=== PATIENT | male | born 1935 | race Caucasian/White ===

== ENCOUNTER 2017-02-21 11:14 | Inpatient (IN) | payer MEDICARE, OTHER ==
--- NOTE | ~2017-02-21 | CN ---
Consultation Report [facility] [address] [place]. [address] NAME: GUDELIA LEVINE : 34 STATUS : ADM IN PAT#: [id number] AGE: 81 ADM/REG DATE : 02/21/17 MR#: [id number] REPORT SERV DATE: 03/01/17 DICTATED BY: LORENE FELICIANO DATE: 03/01/17 REPORT STATUS : Draft TRANSCRIBED BY: MODL DATE: 03/01/17 CONSULTATION DATE OF CONSULTATION: REASON FOR CONSULTATION: Due to acute kidney injury on chronic kidney disease. HISTORY OF PRESENT ILLNESS: This is a very pleasant 81-year-old male patient, who has had a long complicated course of late medically. He was admitted to [facility] on 02/21/2017, from an outside facility with an initial complaint of atrial fibrillation with rapid ventricular response. He had converted by his arrival here and was admitted by the hospitalist service in favor of further workup and supportive care. He was noted to have an abnormal gallbladder on 02/22/2017. Abdominal survey via CT with evaluation for surgical services, who recommended no surgical intervention at current time. On 02/24/2017, he was evaluated by GI Services for an elevated liver function with question of need for further workup, however, there was felt to be no need for further workup at that time. The patient was opted for close observation for following evaluation of his LFTs to see if they trended down. 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 He is been monitored closely with followup chest x-ray exam was today noted to be a severe failure rather with a right pleural effusion, with a left pleural effusion that was stable. We were asked to evaluate the patient as his baseline creatinine appears to be around 1.2 to 1.4, with his creatinine trending up on 02/26/2017 to 1.54, 02/27/2017 to 1.63, and 2.08 on 02/28/2017, and today at 2.36, now at 2.41. The patient is lying awake in bed this afternoon. He is severely tachypneic, dyspneic, and he finds it difficult to hold conversation. He is awake and alert. Somewhat distressed with his breathing status. Denies current chest pain. No nausea, vomiting, or diarrhea. PAST MEDICAL HISTORY: Positive for GI bleed, secondary AVMs, colitis, gastric ulcers, diverticulosis, COPD with oxygen dependence, PEG tube was subsequently removed, coronary artery disease, CHF, diastolic CHF, paroxysmal atrial fibrillation, peripheral artery disease, bilateral carotid endarterectomies, with peripheral stenting, hypertension, diabetes mellitus, chronic kidney disease baseline as above, diverticular GI bleeding, acute blood loss anemia, EtOH abuse with DTs, renal tubular acidosis, BPH, C diff, and partial small bowel obstruction. SURGICAL HISTORY: Positive for colonoscopy, EGD, tracheostomy, PEG tube placement, subsequently discontinued with result of transverse colon enterectomy, transverse colon repair, and fatty tumor removal from the neck. SOCIAL HISTORY: , nursing facility. Former ETOH abuse. Positive for chronic tobacco abuse. Consultation Report [address] [place]. [address] NAME: GUDELIA LEVINE : 34 STATUS : ADM IN PAT#: [id number] AGE: 81 ADM/REG DATE : 02/21/17 MR#: [id number] REPORT SERV DATE: 03/01/17 DICTATED BY: LORENE FELICIANO DATE: 03/01/17 REPORT STATUS : Draft TRANSCRIBED BY: JAYLA DATE: 03/01/17 FAMILY HISTORY: Noncontributory and not reviewed during this consultation and dictation. REVIEW OF SYSTEMS: Review of systems is difficult to complete with the patient in his current medical state. ACTIVE CURRENT MEDICATIONS: Albumin 25 g IV q.8, Lipitor 20 mg p.o. at bedtime, Bumex 2 mg IV q.8, Coreg 6.25 mg p.o. b.i.d., Rocephin 1 g IV daily, Celexa 20 mg p.o. daily, Colace 100 mg p.o. daily, Ativan 0.5 mg p.o. at bedtime, magnesium oxide 400 mg p.o. b.i.d., Protonix 40 mg p.o. b.i.d., Carafate 1 g p.o. a.c. at bedtime, Flomax 0.4 mg p.o. q.18 hours, p.r.n. medications for antipain, antinausea, electrolyte protocol are also listed. ALLERGIES: HE LISTS ALLERGIES TO HYDRALAZINE, PEANUT BUTTER, AND IBUPROFEN. PHYSICAL EXAMINATION: VITAL SIGNS: Blood pressure 182/79, temperature 97.5, his respiratory rate is at 24 and difficult, heart rate is 66 beats per minute. GENERAL: He is an acutely ill appearing, tachypneic, and dyspneic male patient, lying in bed during evaluation. HEENT: Normocephalic and atraumatic. Normal ocular movements. No scleral icterus or conjunctival pallor is appreciated. Neck: Supple without thyromegaly. No JVD or mass. CHEST: Shows positive S1, with regular rhythm. LUNGS: Shows rhonchi and rales throughout without appreciable wheezes. He is dyspneic to examination. GASTROINTESTINAL: Examination shows a rounded firm abdomen on exam. GENITOURINARY: Examination is deferred. He does have a Padilla catheter to bedside drainage with a modest amount of clear yellow urine. NEUROLOGIC: He is unable to be tested in his current medical state. Skin: Warm, dry, and intact to visualized surfaces. No rash, lesions, or ecchymosis. PSYCHIATRIC: He is of appropriate mood and affect, although, he is somewhat distressed. LABORATORY DATA: Pertinent laboratories and imaging to this evaluation are as follows. Most recent CBC white blood cell count of 13.2, RBC 2.98, hemoglobin 8.8, hematocrit 27.8, and platelets at 241. Renal function panel; sodium 135, potassium 4.6, chloride 105, CO2 23, BUN 33, creatinine 2.41, reflected GFR at 24 mL/minute. Calcium 7.5, phosphorus 3.2, albumin 2.6. Most recent portable chest x-ray shows severe failure right pleural effusion with a small left effusion noted on examination. IMPRESSION AND PLAN: This is an 81-year-old male patient, with medical history as listed above, with a recent admission for atrial fibrillation with RVR, with workups that were subsequent in following with the patient, who is now in acute respiratory distress. I have discussed the patient this afternoon with his primary physician and hospitalist Dr. Schwarz, who is in agreement to move this patient to an ICU setting. We will escalate his care and move him to the medical intensive care unit. He will be placed on a Bumex drip at Consultation Report [place] [id number] [facility] [place]. [address] NAME: GUDELIA LEVINE : 34 STATUS : ADM IN PAT#: [id number] AGE: 81 ADM/REG DATE : 02/21/17 MR#: [id number] REPORT SERV DATE: 03/01/17 DICTATED BY: LORENE FELICIANO DATE: 03/01/17 REPORT STATUS : Draft TRANSCRIBED BY: JAYLA DATE: 03/01/17 2 mL an hour, Diuril IV x1 250 mg, stat ABG, BiPAP support. Critical Care will be consulted for evaluation and will direct his care there. His acute kidney injury is likely a multifocal scenario at this point. It could be related to possible acute tubular necrosis from atrial fibrillation with rapid ventricular response, versus acute tubular necrosis related to sepsis, or a cardio renal syndrome picture. Check renal ultrasound, echocardiogram, procalcitonin, and follow the patient closely. Serial laboratories, strict I's and O's, and daily weights. Should his renal dysfunction continued to escalate, he would likely be a poor long-term hemodialysis candidate given his multiple comorbidities, and his advancing age. Further modification of treatment plan may be made based on clinical presentation of the patient, laboratory results, further consultation with renal attending. We appreciate the consultation. We are glad to follow this patient with you. DICTATED BY: Con Mirza NP JR/JAYLA Lorene Feliciano M.D. / [id number] CC: Arnav Schwarz M.D.
--- NOTE | ~2017-02-21 | CN ---
Consultation Report [facility] [address] [place]. [address] NAME: GUDELIA NUGENT : 34 STATUS : ADM IN [facility]#: [id number] AGE: 81 ADM/REG DATE : 02/21/17 MR#: [id number] REPORT SERV DATE: 02/22/17 DICTATED BY: TOM PEARCE DATE: 02/22/17 REPORT STATUS : Draft TRANSCRIBED BY: MODL DATE: 02/22/17 CONSULTATION DATE OF CONSULTATION: 02/22/2017 REASON FOR CONSULTATION: Abnormal gallbladder on CT. HISTORY OF PRESENT ILLNESS: Mr. Nugent is an 81-year-old gentleman who was transferred to [facility] from [place] due to atrial fibrillation with RVR. He was treated with IV amiodarone and converted. He has had several abdominal surgeries, most recently being exploratory laparotomy with lysis of adhesions on 08/16 and on 07/23/2013, underwent repair of the transverse colon when he forcefully removed his PEG tube which was in the transverse colon. This was performed by Dr. Victorino Bazan. Currently, the consult is for abnormal gallbladder on CT, which was distended with increased intensity in the lumen. This is consistent with either multiple stones, calcium, or possibly hemorrhage. The bile ducts are all normal and there is a localized ileus. The patient does deny pain; however, he is tender on physical exam. Please see Dr. Anant Torres's dictation for past medical history, past surgical history, allergies, medications, social history, family history. REVIEW OF SYSTEMS: Listed in the HPI, otherwise, negative. PHYSICAL EXAMINATION: VITAL SIGNS: 97.7, 76, 20, 96, 112/57. GENERAL: Alert elderly white male, no acute distress. HEENT: Normocephalic and atraumatic. EOMI. PERRLA. Oropharynx is clear. NECK: Supple. No lymphadenopathy. LUNGS: Clear to auscultation bilaterally. HEART: Regular rate and rhythm. ABDOMEN: Protuberant, consistent with prior surgical scars. He denies pain, however, to palpation, he has pain right at McBurney point. NEUROLOGICAL: Moves all extremities well. Cranial nerves 2 through 12 intact. SKIN: No rashes. LABORATORY DATA: His white count yesterday was 11.8, H and H 10.5 and 32.4, platelets of 180. Electrolytes are within the normal range. Creatinine is elevated today at 1.32 from 0.92 yesterday. All LFTs are within normal range. He has decreased albumin at 2.8 and his troponins were mildly elevated at 0.19, down to 0.17, and then 0.09. His beta natriuretic peptide was elevated at 306. ASSESSMENT: Abnormal findings of gallbladder on CT scan. PLAN: At this point, I would recommend an ultrasound of the right upper quadrant, which is a more sensitive test, and specifically, the CT scan is for gallbladder abnormalities. The Consultation Report [facility] [address] [place]. [id number] NAME: GUDELIA NUGENT : 34 STATUS : ADM IN PAT#: [id number] AGE: 81 ADM/REG DATE : 02/21/17 MR#: [id number] REPORT SERV DATE: 02/22/17 DICTATED BY: TOM PEARCE DATE: 02/22/17 REPORT STATUS : Draft TRANSCRIBED BY: JAYLA DATE: 02/22/17 white count was only slightly elevated, so we will repeat the CBC in the morning. At this point, I think he has cholelithiasis but no evidence of cholecystitis. He is currently not a surgical candidate due to the elevated troponins. We would need cardiac clearance. In the meantime, if pain or infection is a problem, I would recommend Interventional Radiology to place a cholecystostomy tube. It is my pleasure participating in the care of your patient. OC/JAYLA Tom Pearce NP / [id number] CC: Anant Valverde M.D.
--- NOTE | ~2017-02-21 | DS ---
Discharge Summary [facility] [address] [place]. [address] NAME: GUDELIA NUGENT : 34 STATUS : DIS IN PAT#: [id number] AGE: 81 ADM/REG DATE : 02/21/17 MR#: [id number] REPORT SERV DATE: 03/08/17 DICTATED BY: JAZMINE MORELOS DATE: 03/07/17 REPORT STATUS : Draft TRANSCRIBED BY: MODL DATE: 03/07/17 ADMISSION DATE: 02/21/2017 DISCHARGE DATE: 03/07/2017 HOSPITAL COURSE: Please see history and physical by Dr. Torres on 02/21/2017 for full details. In brief, Mr. Nugent is an 81-year-old gentleman with a past medical history of atrial fibrillation, multiple medical problems, who was sent here for atrial fibrillation with RVR. Please see interim discharge summary by Dr. Schwarz on 03/01/2017. 1. The patient had acute hypoxic respiratory failure, thought to be underlying volume overload, the patient underwent diuresis, unfortunately had worsening kidney function. He required BiPAP therapy. This was done for around 1-1/2 days. Finally, the patient requested to have this off, initially he was short of breath but actually had improvement in his respiratory status by the time of discharge. The patient was adamant that he did not want to have further BiPAP therapy. Family discussions were conducted with the niece and son, Ananth, with regard to the patient's wishes. It was thought that he would not want further aggressive care such as intubation or resuscitation. The patient actually at one point in time said that he feared pain and wanted to without pain. Therefore, aggressive pulmonary support such as BiPAP and mechanical ventilation was not considered. At the time of discharge, the patient was actually on nasal cannula. 2. VRE infection, acute cholecystitis: The patient is status post percutaneous cholecystostomy tube. He is not a surgical candidate. This tube stopped draining. He was on antibiotics, inflammatory markers improved. He will continue to have the cholecystostomy tube. 3. Acute GI bleeding: The patient was noted to have AV malformations. At the time of discharge, his hemoglobin was 7.7, on 03/05/2017, it was 6.9. 4. Acute kidney injury: The kidney function has continued to deteriorate, his BUN has been going up daily, his creatinine has been going up daily, and the patient is slightly acidotic. After discussing with Nephrology and having a family meeting, the patient's wishes were not to undergo dialysis. Hence, the reason for hospice is due to the worsening kidney function in the setting of pulmonary failure, chronic infection that is not amenable for curative intent. DISPOSITION: The patient has been discharged to hospice. Also of note, the patient did not want to take any further p.o. intake and refused a Dobbhoff tube. The patient left in good spirits. HFQ/MODL Jazmine Morelos MD / [id number] Discharge Summary [address] [address] NAME: GUDELIA NUGENT : 34 STATUS : DIS IN PAT#: [id number] AGE: 81 ADM/REG DATE : 02/21/17 MR#: [id number] REPORT SERV DATE: 03/08/17 DICTATED BY: JAZMINE MORELOS DATE: 03/07/17 REPORT STATUS : Draft TRANSCRIBED BY: JAYLA DATE: 03/07/17 CC: Arnav Schwarz M.D.
--- NOTE | ~2017-02-21 | CN ---
Consultation Report [facility] [address] [place]. [address] NAME: GUDELIA NUGENT : 34 STATUS : ADM IN PAT#: [id number] AGE: 81 ADM/REG DATE : 02/21/17 MR#: [id number] REPORT SERV DATE: 02/24/17 DICTATED BY: RUTH BAIRD DATE: 02/24/17 REPORT STATUS : Draft TRANSCRIBED BY: MODL DATE: 02/24/17 GI CONSULTATION. DATE OF CONSULTATION: 02/24/2017 REASON FOR CONSULTATION: Evaluation and management of elevated LFTs, possible need for ERCP. HISTORY OF PRESENT ILLNESS: Mr. Nugent is an 81-year-old male patient, who has been seen by Dr. Garcia in the outpatient setting, who was admitted on 02/21/2017 with a chief complaint of atrial fib with rapid ventricular response. He was transferred from [facility] as no ICU beds were available there. He had been having some shortness of breath, pulmonary vascular congestion. He is postop exploratory lap secondary to adhesions with lysis of adhesions, the cause of small bowel obstruction. Last seen by us in October 2016 for evaluation and management of a GI bleeding. On 10/10/2016, he had EGD with Dr. Velazquez. On that exam, he had gastric ulcers which biopsied a single gastric polyp, otherwise normal. Underwent colonoscopy the next day. Findings on that exam showed some patchy mid inflammation found in the rectum, the rectosigmoid colon and the sigmoid colon secondary to colitis, which was biopsied. He had diverticulosis of the sigmoid, otherwise normal. He was subsequently discharged on 10/12/2016. While being admitted here, he has had a trend in his liver function testing. He had an MRI, which showed inflamed gallbladder and inflammation of the common bile duct without dilatation. Ultrasound showed diffuse wall thickening, internal debris sludge within the gallbladder lumen, positive Camacho sign. Common bile duct was normal. His total bilirubin maximum was 4.8, presently it is 3.3, alkaline phosphatase presently is 322, ALT 187, AST 149. I have discussed with Dr. Velazquez as well as Dr. Valverde. We were consulted for ERCP. There was no clinical indication at this point in time for an ERCP. We would recommend trending his LFTs and possible surgical intervention per the surgical team. PAST MEDICAL HISTORY: Positive for GI bleed secondary to AVMs, colitis, gastric ulcers, diverticulosis, COPD with oxygen dependence, PEG tube which subsequently he removed, coronary artery disease, CHF, diastolic CHF, paroxysmal atrial fib, peripheral artery disease with bilateral carotid endarterectomies and peripheral stenting, hypertension, diabetes type 2, chronic kidney disease, diverticular GI bleeding, acute blood loss anemia, alcohol abuse with DTs, renal tubular acidosis, BPH, C diff, partial small bowel obstruction. SURGICAL HISTORY: Colonoscopy; EGD; tracheostomy; PEG tube placement, subsequently discontinued with result of transverse colon enterotomy; transverse colon repair; fatty tumor removal from the neck. SOCIAL HISTORY: , lives at nursing facility. Former alcohol abuse. Positive tobacco. FAMILY HISTORY: Stomach cancer in two sisters. Consultation Report [address] [place]. [address] NAME: GUDELIA NUGENT : 34 STATUS : ADM IN [facility]#: [id number] AGE: 81 ADM/REG DATE : 02/21/17 MR#: [id number] REPORT SERV DATE: 02/24/17 DICTATED BY: RUTH BAIRD DATE: 02/24/17 REPORT STATUS : Draft TRANSCRIBED BY: JAYLA DATE: 02/24/17 ALLERGIES: PEANUTS, IBUPROFEN, AND HYDRALAZINE. HOME MEDICATIONS: DuoNeb inhaler, vitamin C, Lipitor, Symbicort, Coreg, Celexa, Benadryl, Colace, ferrous sulfate, Lasix, Apresoline, Claritin, Ativan, nitroglycerin, Zofran, Protonix, Carafate, Flomax. REVIEW OF SYSTEMS: A 10-point review of systems has been obtained with pertinent positives being addressed in the history of present illness. PHYSICAL EXAMINATION: VITAL SIGNS: Temperature is 96.7, pulse 55, respirations 18, blood pressure 98/43. NEURO: Reveals an elderly male, resting in bed who awakens to name. GENERAL: He is cooperative. He is in no acute distress, chronically ill appearing in nature. He is oriented x3. NECK: No JVD. No palpable nodes. HEAD, EARS, EYES, NOSE, AND THROAT: He has mild scleral icterus. Pupils equal, round, reactive to light, and accommodation. Normocephalic and atraumatic. LUNGS: Coarse and diminished. CARDIOVASCULAR SYSTEM: Regular rate and rhythm. Positive for murmur. ABDOMEN: Soft and round with right upper quadrant tenderness to palpation. No rebound or guarding elicited on exam, unable to assess organomegaly. Active bowel sounds. EXTREMITIES: 1+ bilateral lower extremity edema. SKIN: Pale, warm, dry, and intact. PERTINENT LABORATORY DATA: Sodium 142, potassium 4.0, BUN 35, creatinine 1.49, white count 13.1, hemoglobin 7.6, hematocrit 23.6, total bilirubin 3.3, alkaline phosphatase 322, ALT 187, AST 149. ASSESSMENT: 1. Acute cholecystitis with cholangitis. 2. Elevated LFTs. 3. Ndzkn-yx-hvrtuod chronic obstructive pulmonary disease. 4. Anemia, acute on chronic. 5. Paroxysmal atrial fibrillation with sick sinus syndrome. PLAN: 1. Empiric Zosyn. 2. We will discuss further with Dr. Velazquez. At this point in time, did not feel the patient would benefit from ERCP. We will trend his LFTs and make plans accordingly. Okay for clear liquid diet from a GI standpoint. DG/YINAL Consultation Report [address] [place]. [address] NAME: GUDELIA NUGENT : 34 STATUS : ADM IN [facility]#: [id number] AGE: 81 ADM/REG DATE : 02/21/17 MR#: [id number] REPORT SERV DATE: 02/24/17 DICTATED BY: RUTH BAIRD DATE: 02/24/17 REPORT STATUS : Draft TRANSCRIBED BY: JAYLA DATE: 02/24/17 ALVIN Fabian / [id number] CC: Anant Valverde M.D.
--- NOTE | ~2017-02-21 | CN ---
Consultation Report [facility] [address] [place]. [address] NAME: GUDELIA LEVINE : 34 STATUS : ADM IN PAT#: [id number] AGE: 81 ADM/REG DATE : 02/21/17 MR#: [id number] REPORT SERV DATE: 03/02/17 DICTATED BY: GUMARO HERNANDEZ DATE: 03/02/17 REPORT STATUS : Draft TRANSCRIBED BY: MODL DATE: 03/02/17 INFECTIOUS DISEASE CONSULTATION DATE OF CONSULTATION: REASON FOR REFERRAL: Evaluation and treatment of worsening septic-like picture in ICU, now ICU transfer. HISTORY OF PRESENT ILLNESS: The patient is an 81-year-old male. He has a history of extensive smoking in the past and has oxygen-dependent chronic obstructive pulmonary disease. He has coronary artery disease, congestive heart failure, peripheral vascular disease, past history of alcohol abuse, chronic renal insufficiency. He was originally admitted [place] [facility] with abdominal pain. He was found to have a small-bowel obstruction on imaging and was transferred to [facility], where he underwent exploratory laparotomy on 02/14 and findings of extensive adhesions, lysis of adhesions was done. He in this postoperative period had atrial fibrillation with rapid ventricular response and that led to a transfer here to [facility] on 02/21 for better care of that and that has been converted. In the meantime, his wound in the abdomen was healing, but he continued to have a lot of abdominal complaints. He has had upper endoscopy imaging that revealed gallbladder disease that appeared to be an acute cholecystitis and was not felt stable enough by Surgery to undergo a surgical procedure for that, so a percutaneous drain was placed on 02/27, and at the time that procedure was done, the patient was on antibiotics. He had been started on Zosyn. At the time that he got admitted, he grew only abundant vancomycin-resistant Enterococcus. Presumably, other organisms were there, but would have been suppressed by the Zosyn in all likelihood. The Gram stain showed many white cells and few gram-positive cocci, that result just returned yesterday, it was discussed with me and I recommended dosing with daptomycin , which was done yesterday afternoon. In the meantime, the patient worsened through the day yesterday, he felt worsening and began to complain of increasing abdominal pain. He has had ecchymosis-like discoloration in his anterior abdominal wall laterally. He was transferred to the intensive care unit yesterday and placed on BiPAP. He continues to complain of severe abdominal pain and on exam, has findings suggestive of peritoneal signs. However, a CT scan that was done yesterday without contrast showed that there was no obvious intra-abdominal air or signs of bowel rupture. There was a loculated fluid collection in the anterior abdominal wall that could be an early forming abscess and is down in the area where his previous surgery was done. The gallbladder was shown to be decompressed and appeared to be improved. His chest x-ray has shown looks most like pulmonary edema. His major complaint is the abdominal pain at present. PAST MEDICAL HISTORY: Otherwise, unremarkable. Extensive records were reviewed for more than 30 minutes in addition to the usual consult time due to his lengthy complicated hospitalization at three different hospitals. MEDICATIONS: He is on daptomycin and Flagyl alone. Consultation Report [address] [place]. [address] NAME: GUDELIA LEVINE : 34 STATUS : ADM IN [facility]#: [id number] AGE: 81 ADM/REG DATE : 02/21/17 MR#: [id number] REPORT SERV DATE: 03/02/17 DICTATED BY: GUMARO HERNANDEZ DATE: 03/02/17 REPORT STATUS : Draft TRANSCRIBED BY: JAYLA DATE: 03/02/17 ALLERGIES: HE HAS NO KNOWN ANTIMICROBIAL ALLERGIES. SOCIAL HISTORY: He is , previously lived in a long-term care facility. Had continued to smoke until recently and has a past history of extensive alcohol abuse, but not recent. FAMILY HISTORY: Noncontributory. PHYSICAL EXAMINATION: GENERAL: An ill-appearing, elderly male, laboring to breathe. VITAL SIGNS: His temperature is 99.6 with a pulse of 80, respirations 26, blood pressure 147/68, weight is 97 kg. HEENT: Sclerae clear. No oral lesions. NECK: Supple without meningeal signs or lymphadenopathy. LUNGS: There are rales heard bilaterally [facility] up. HEART: Irregular. ABDOMEN: Distended, very tender to light touch with guarding, and signs of rebound. Intermittent bowel sounds were heard. He has a midline incision from his surgery two weeks ago that still has ekta in, it is closed, but there is erythema extending on, on both sides and ecchymoses down the flanks on the left. LABORATORY DATA: His white blood cell count when he originally came here was 11.8, it was up to 15 on 02/26, but decreased after the drain was placed to 14, 13 yesterday, 11.7 today with hematocrit 24.4 and platelets 254. No bandemia on today's diff. BUN and creatinine 39 and 2.25. Procalcitonin when he came in was 1.17 and was 0.23 when last checked on 02/28. No new cultures pending. IMPRESSION: The patient appears more ill and septic appearing, and I feel the abdomen is the source and even has physical findings suggestive of peritoneal signs. The gallbladder is probably not the source since it looks better on the CT. I would be more concerned about the problem related to his surgery two weeks ago and perhaps a developing abscess around that incision. RECOMMENDATIONS: 1. We will cover him aggressively with antibiotics using daptomycin and Zosyn. 2. Surgery is to see him again. Would defer to them whether something needs to be done regarding this fluid collection, either needle aspirate or opening the wound. 3. Finally, I will follow the patient with you. I appreciate very much your consulting on this patient. KATHLEEN/JAYLA Gumaro Consultation Report [address] [place]. [address] NAME: GUDELIA LEVINE : 34 STATUS : ADM IN [facility]#: [id number] AGE: 81 ADM/REG DATE : 02/21/17 MR#: [id number] REPORT SERV DATE: 03/02/17 DICTATED BY: GUMARO HERNANDEZ DATE: 03/02/17 REPORT STATUS : Draft TRANSCRIBED BY: JAYLA DATE: 03/02/17 Ramiro Hernandez / [id number] CC: Arnav Schwarz M.D.
--- NOTE | ~2017-02-21 | HP ---
History And Physical [place] [id number] [facility] [place]. [address] NAME: GUDELIA LEVINE : 34 STATUS : ADM [place] PAT#: [id number] AGE: 81 ADM/REG DATE : 02/21/17 MR#: [id number] REPORT SERV DATE: 02/21/17 DICTATED BY: JAQUELIN BRITT DATE: 02/21/17 REPORT STATUS : Draft TRANSCRIBED BY: YINAL DATE: 02/21/17 DATE OF ADMISSION: 02/21/2017 EXAMINING PHYSICIAN: Jaquelin Britt M.D. REASON FOR ADMISSION: Atrial fibrillation and rapid ventricular response. HISTORY OF PRESENT ILLNESS: This is an 81-year-old white male, transferred from the [facility] because there were no ICU beds there for the atrial fibrillation. The patient is placed on an amiodarone drip on the floor. He converted to normal sinus rhythm prior to discharge. EKG confirms this. He was transferred because IV Cardizem could not be given according to the report I obtained. He does have a history of episodic atrial fibrillation with rapid ventricular response. His had it in the past as well as she was cardioverted previously. He has been having some shortness of breath the last couple days with increasing pulmonary vascular congestion. Diuresis was started yesterday. He continues to have leg edema. He pulled his own NG tube out. He is postop exploratory laparotomy because of adhesions causing small bowel obstruction. He has had a bowel perforation here in the past apparently when he pulled the PEG tube out. He has had a tracheostomy and is on a ventilator, and he says he will go back on a ventilator if necessary to preserve his life. He has some postoperative blood loss anemia, chronic kidney disease stage 3, had hyperkalemia, was on oral potassium at [facility] on transfer. The patient says he is doing quite well. He has had normal sinus rhythm, was a little weak earlier. He pulled his NG tube out. He has been eating food for the last two days and says he is getting better. His abdominal pain is under control. Though, he is getting distended. He says he has not had a bowel movement in the last two days. DICTATION ENDS HERE RAHUL/JAYLA Jaquelin Britt M.D. / [id number] History And Physical [address] [place] [facility] [address] NAME: GUDELIA LEVINE : 34 STATUS : ADM [place] PAT#: [id number] AGE: 81 ADM/REG DATE : 02/21/17 MR#: [id number] REPORT SERV DATE: 02/21/17 DICTATED BY: JAQUELIN BRITT DATE: 02/21/17 REPORT STATUS : Draft TRANSCRIBED BY: YINAL DATE: 02/21/17 CC: Jaquelin Valverde M.D.
--- NOTE | ~2017-02-21 | IDS ---
Interim Discharge Summary [facility] [address] [place]. [address] NAME: GUDELIA LEVINE : 34 STATUS : ADM IN [facility]#: [id number] AGE: 81 ADM/REG DATE : 02/21/17 MR#: [id number] REPORT SERV DATE: 03/01/17 DICTATED BY: ARNAV SCHWARZ DATE: 03/01/17 REPORT STATUS : Draft TRANSCRIBED BY: MODJake DATE: 03/01/17 ADMISSION DATE: 02/21/2017 DISCHARGE DATE: DATE OF INTERIM SUMMARY: 03/01/2017 INTERIM DIAGNOSES: 1. Acute on chronic systolic and diastolic congestive heart failure. 2. Bilateral pleural effusions. 3. Acute kidney injury, with most likely cardiorenal syndrome. 4. Diastolic heart failure. 5. Oxygen-dependent chronic obstructive pulmonary disease with history of respiratory failure in the past and intubation and the PEG tube in the past. 6. Coronary artery disease. 7. Paroxysmal atrial fibrillation with recent episode of atrial fibrillation and rapid ventricular response. 8. Acute cholecystitis, currently with a cholecystostomy tube. Not a surgical candidate according to Surgery. 9. Abnormal liver function studies, currently stable. 10.Acute gastrointestinal bleeds with arteriovenous malformations of the duodenum, status post gastrointestinal intervention and cautery of the arteriovenous malformations two days ago. Acute blood loss anemia with recent transfusion of 3 units of packed red blood cells. 11.Peripheral arterial disease with bilateral carotid endarterectomies. 12.Hypertension. 13.Type 2 diabetes mellitus. 14.Chronic kidney disease stage 3. 15.History of diverticular bleeds in the past. 16.Alcohol abuse with history of delirium tremens in the past. 17.History of renal tubular acidosis. 18.History of benign prostatic hypertrophy. 19.History of Clostridium difficile colitis. 20.Cholangitis with Enterococcus faecium growing out of the fine needle aspiration of the gallbladder, currently started on daptomycin. CONSULTANTS DURING THIS HOSPITALIZATION: [facility], Dr. Vinh Schmitt of General surgery, Dr. Mynor Velazquez of Gastroenterology, and [facility]. INVASIVE PROCEDURES DONE DURING THIS HOSPITALIZATION: EGD showing AVMs of the duodenum, status post cautery. Cholecystostomy tube placed under Interventional Radiology. BRIEF HISTORY OF PRESENT ILLNESS: The patient is an 81-year-old male with multiple comorbidities, transferred from [facility] in [facility] with atrial fibrillation and requiring an amiodarone drip. For detailed history and physical exam, please see note dictated by Dr. Anant Torres on 02/21/2017. Interim Discharge Summary [place] [address] [place]. [address] NAME: GUDELIA LEVINE : 34 STATUS : ADM IN PAT#: [id number] AGE: 81 ADM/REG DATE : 02/21/17 MR#: [id number] REPORT SERV DATE: 03/01/17 DICTATED BY: ARNAV SCHWARZ DATE: 03/01/17 REPORT STATUS : Draft TRANSCRIBED BY: MODL DATE: 03/01/17 HOSPITAL COURSE: After being transferred to the hospital, this patient was placed on amiodarone drip, Cardiology was consulted. This patient's heart rhythm came under better control. His amiodarone drip has been discontinued. We have held his anticoagulation because of his continued GI bleed. When he came here, he was noted to also have an elevated liver function studies, and on the CT, the gallbladder had acute cholecystitis. Dr. Vinh Schmitt saw the patient in consultation, and because of his abnormal LFTs, we wanted the GI evaluation. Dr. Velazquez saw the patient in consultation and as we treated his underlying infection with IV antibiotics which included Rocephin and Flagyl. This patient did improve, his creatinine on admission was normal at 0.9. But since his intervention over the last three days, his creatinine has slowly crept up. He appears volume overloaded. His last BNP was 1100. Since then, he has been treated with multiple doses of IV Lasix. He has been given IV Bumex and he has also been given IV albumin. Today, his creatinine has continually crept up, so we have asked Nephrology to see the patient. Today, his overall condition has also declined where he has become more and more short of breath. His blood pressure has stayed elevated, so that this was to a point where this patient cannot be managed on the floor and will be transferred to the intensive care unit. I have personally discussed his care with Dr. Beba Rivera of the igniter assembler team. DISPOSITION: Will be pending above. OUMAR/JAYLA Arnav Schwarz M.D. / [id number] CC: Arnav Schwarz M.D.
--- NOTE | ~2017-02-21 | HP ---
History And Physical [place] [address] [facility] [place]. [address] NAME: GUDELIA LEVINE : 34 STATUS : DIS IN PAT#: [id number] AGE: 81 ADM/REG DATE : 02/21/17 MR#: [id number] REPORT SERV DATE: 03/28/17 DICTATED BY: JAQUELIN BRITT DATE: 03/28/17 REPORT STATUS : Draft TRANSCRIBED BY: JAYLA DATE: 03/28/17 DATE OF ADMISSION: 02/21/2017 ADDENDUM: PAST MEDICAL HISTORY: He had history of GI bleed, many AVMs, colitis, gastric ulcers, and diverticulosis. He does have COPD with oxygen dependence and PEG, that has been removed. He has coronary artery disease and history of diastolic congestive heart failure, paroxysmal atrial fibrillation, peripheral arterial disease, bilateral carotid artery endarterectomy, peripheral stenting, hypertension, diabetes type 2, chronic kidney disease, history of diverticular bleeding. SOCIAL HISTORY: He is . Lives in a nursing facility. Used to drink alcohol, and used to smoke cigarettes as well. FAMILY HISTORY: Heart disease, lung disease, and high blood pressure run in the family. REVIEW OF SYSTEMS: He has had no headache or eye pain. No chest pain. No shortness of breath. His heart rate was running fast, they told him, and sent him here. He does not feel palpitations. No melena or hematemesis. No shortness of breath. No fever, chills, or night sweats. The remainder of the review of systems was negative. MEDICATIONS: Transfer medications included Bumex, Coreg, Celexa, Colace, Ativan, Protonix, Carafate, and Flomax. PHYSICAL EXAMINATION: VITAL SIGNS: Blood pressure 175/75 with heart rate 75, respiratory rate 18, afebrile. HEENT: EOMI. Sclerae clear. Conjunctivae pink. NECK: No bruit, without JVD. CHEST: Clear. HEART: Regular S1, S2 without murmur, gallop, or click. ABDOMEN: Rounded, firm, protuberant. EXTREMITIES: No edema. Distal pulses not palpable. LABORATORY DATA: Hemoglobin 8.8, hematocrit 27. ASSESSMENT: 1. Paroxysmal atrial fibrillation. 2. Hypertension. 3. Renal insufficiency. 4. Sleep apnea. PLAN: Admitting for control of heart rate. He was at the nursing facility in [place] and then in a hospital there. There were no ICU beds, so he was sent here. He does not want to be resuscitated in the event of cardiac arrest. History And Physical [place] [address] [place]. [address] NAME: GUDELIA LEVINE : 34 STATUS : DIS IN PAT#: [id number] AGE: 81 ADM/REG DATE : 02/21/17 MR#: [id number] REPORT SERV DATE: 03/28/17 DICTATED BY: JAQUELIN BRITT DATE: 03/28/17 REPORT STATUS : Draft TRANSCRIBED BY: JAYLA DATE: 03/28/17 DB/JAYLA Jaquelin Britt M.D. / [id number] CC: Arnav Schwarz M.D.
--- NOTE | ~2017-02-21 | EGD ---
EGD REPORT [facility] [address] [place] [address] NAME: ABEBE NUGENT : 34 STATUS : ADM IN PAT#: [id number] AGE: 81 ADM/REG DATE : 02/21/17 MR#: [id number] REPORT SERV DATE: 02/26/17 DICTATED BY: DATE: REPORT STATUS : Draft TRANSCRIBED BY: [employer] DATE: 02/26/17 [facility] Patient Name: Abebe Nugent Date of : 1935 Attending MD: MYNOR GARCIA MD Procedure Date No Time: 02/26/2017 Procedure: Upper EUS Indications: Suspected choledocholithiasis, Melena Referring MD: JOSE BEST Medicines: Monitored Anesthesia Care Complications: No immediate complications. Estimated blood loss: Minimal. Procedure: Pre-Anesthesia Assessment: - ASA Grade Assessment: IV - A patient with severe systemic disease that is a constant threat to life. After obtaining informed consent, the endoscope was passed under direct vision. Throughout the procedure, the patient's blood pressure, pulse, and oxygen saturations were monitored continuously. The Endoscope was introduced through the mouth, and advanced to the second part of duodenum. The GIF [id number] was introduced through the mouth, and advanced to the second part of duodenum. The upper EUS was accomplished without difficulty. The patient tolerated the procedure well. Findings: Endoscopic Finding : The examined esophagus was normal. Four medium-sized angioectasias with stigmata of recent bleeding were found in the gastric fundus. Fulguration to stop the bleeding by argon plasma at 1 liter/minute and 30 cannon was successful. Estimated blood loss was minimal. Nasogastric tube trauma characterized by edema, erosions and erythema was evident in the gastric fundus and in the gastric body. A single 10 mm semi-sessile polyp with no bleeding and no stigmata of recent bleeding was found in the gastric antrum. Biopsies were taken with a cold forceps for histology. Estimated blood loss was minimal. No gross lesions were noted in the entire examined duodenum. Endosonographic Finding : There was no sign of significant endosonographic abnormality in the common bile duct. No masses, no stones, no biliary sludge and ducts of normal caliber were identified. CBD was 6 mm at maximal diameter. There was no sign of significant endosonographic abnormality in the entire pancreas. No masses, no cysts, the pancreatic duct was regular in contour. EGD REPORT [address] [address] NAME: ABEBE NUGENT : 34 STATUS : ADM IN [facility]#: [id number] AGE: 81 ADM/REG DATE : 02/21/17 MR#: [id number] REPORT SERV DATE: 02/26/17 DICTATED BY: DATE: REPORT STATUS : Draft TRANSCRIBED BY: [employer] DATE: 02/26/17 There was no sign of significant endosonographic abnormality in the ampulla. No masses were identified. No lymphadenopathy seen. Endosonographic imaging of the visualized portion of the liver showed no abnormalities. A limited doppler examination was performed and revealed no significant vascular abnormalities. Impression: - Four recently bleeding angioectasias in the stomach. Treated by fulguration. - Nasogastric tube trauma present in stomach. - A single gastric polyp. Biopsied. - There was no sign of significant pathology in the common bile duct. - There was no sign of significant pathology in the entire pancreas. - There was no sign of significant pathology in the ampulla. - A limited doppler examination was performed and revealed no significant vascular abnormalities. Recommendation: - [facility]. - Surgical consultation for consideration of cholecystectomy at the next available appointment. Procedure Code(s): --- Professional --- 42738, Esophagogastroduodenoscopy, flexible, transoral; with endoscopic ultrasound examination, including the esophagus, stomach, and either the duodenum or a surgically altered stomach where the jejunum is examined distal to the anastomosis 83590, 59, Esophagogastroduodenoscopy, flexible, transoral; with control of bleeding, any method 86456, 59, Esophagogastroduodenoscopy, flexible, transoral; with biopsy, single or multiple Diagnosis Code(s): --- Professional --- K31.811, Angiodysplasia of stomach and duodenum with bleeding K91.89, Other postprocedural complications and disorders of digestive system K31.7, Polyp of stomach and duodenum K92.1, Melena CPT copyright 2013 [employer]. All rights reserved. EGD REPORT [facility] [address] [place] [place]. [address] NAME: ABEBE NUGENT : 34 STATUS : ADM IN [facility]#: [id number] AGE: 81 ADM/REG DATE : 02/21/17 MR#: [id number] REPORT SERV DATE: 02/26/17 DICTATED BY: DATE: REPORT STATUS : Draft TRANSCRIBED BY: [employer] DATE: 02/26/17 The codes documented in this report are preliminary and upon rollway worker review may be revised to meet current compliance requirements. Mynor Garcia MD MYNOR GARCIA MD 02/26/2017 1:01 PM This report has been signed electronically. Number of Addenda: 0 Note Initiated On: 02/26/2017 10:28 AM Scope Withdrawal Time 0 hours 0 minutes [address] [place] [address] [place] [address]
[~2017-02-21 11:14] MED LIST: ACET500CAP PO; ADVAIR250 INH; ADVIL PO; ALBUTEROL INH; ALBUTEROL SULFATE; AMB5 PO; APRES10B PO; ASA5GR PO; ASAB PO; ATIVAN2I IM; ATV.5 PO; BACTROCR TOP; BEN25 PO; BISR PR; BUM2 PO; CALMOSEPTINE EX; CARDCD240 PO; CARDU2 PO; CARDU4 PO; CAT1 PO; CAT2 PO; CATAPRES2 TOP; CELEXA10 MG/5 ML PEG; CELEXA20 PO; CLARIT10 PO; COMBIVENT INH; COMBIVENT RESPIM4 GM INH; COREG12 PO; COREG6 PO; CYANO1000T PO; DALIRESP500 MCG PO; DILT-XR240 MG PO; DOCUSOFT S100 MG PO; DSS PO; DUONEB INH; FERROUS SULF325 M1 PO; FLOMAX4 PO; FOLIC PO; H5P IM; INSNOVR SC; IPRATROPIUM INH; IRON325 MG PO; JEVITY PEG; KCL 40 MEQ IV; KLOR-CON 1010 MEQ PO; KLOR-CON M2020 MEQ PO; L10 PO; L20 PO; L40 PO; LACTINEX PO; LEVAQUIN750 MG PO; LIPITOR10 PO; LIPITOR20 PO; LOM PO; LOP50 PO; LORTAB 5 PO; LOTE40 PO; LOTREL1 CA2 PO; MAGOX4 PO; METOPROLOL IV; MOMUD PO; MUCINEX600 MG PO; NACL 0.9% IV; NATALVIT1 TAB PO; NITROII5C TOP; NITROSTAT0.4 MG SL; NORCO1 TA1 PEG; NORV10 PO; NORV5 PO; P10 PO; P20 PO; PCET PO; PEP20 PO; PERFOROM INH; PERIDEX PO; PRIN10 PO; PROTONI1 PO; PROTONIX PO; PROTONIX20 MG PO; PROTONIXIV IV; PULRESP.5 INH; SB325 PO; SEPTRA DS1 TAB PO; SPIRIVA INH; SYMBICORT 80/4.1 INH INH; TAMIFLU PO; TAZTIA X3 PO; TPN IV; TYLENOL 8 HR650 MG PO; VANCO1P IV; VENTOLIN HFA INH; VITAMIN D1000 UNI1 PO; VITC500 PO; ZOFRAN2ML IM; ZOFRAN4 PO; [UNRECOGNIZED DRUG - CODE] IV; [UNRECOGNIZED DRUG - CODE] IV; [UNRECOGNIZED DRUG - OTHER] PO
[2017-02-21 14:23] LABS: BASOPHILS 0.2 %; BASOPHILS ABSOLUTE 0.02 10/3/uL (0.0-0.16); EOSINOPHILS 2.9 %; EOSINOPHILS ABSOLUTE 0.34 10/3/uL (0.0-0.53); HEMOGLOBIN 10.5 g/dL (13.6-17.8); IMMATURE GRANULOCYTES 1.7 %; LYMPHOCYTES 9.3 %; LYMPHOCYTES ABSOLUTE 1.09 10/3/uL (0.67-4.30); MEAN CORPUS HGB CONC 32.4 g/dL (32.0-36.0); MEAN CORPUSCULAR HEMOGLOB 29.2 pg (26.0-34.0); MEAN PLATELET VOLUME 10.2 fL (9.2-13.0); MONOCYTES ABSOLUTE 0.94 10/3/uL (0.21-1.20); NEUTROPHILS 77.9 %; NEUTROPHILS ABSOLUTE 9.18 10/3/uL (2.02-8.40); PLATELET COUNT 180 10/3/uL (150-400); RBC DISTRIBUTION WIDTH 16.8 % (12.0-16.0)
[2017-02-21 14:29] LABS: HEMATOCRIT 32.4 % (40.0-51.0); MANUAL DIFF NO %; WHITE BLOOD CELLS 11.8 10/3/uL (4.5-10.5)
[2017-02-21 14:37] LABS: A/G RATIO 0.8 (0.7-1.9); ALBUMIN 2.8 G/DL (3.5-5.0); ALKALINE PHOSPHATASE 50 U/L (45-117); BUN (BLOOD UREA NITROGEN) 18 MG/DL (6-23); CHLORIDE, SERUM 109 MMOL/L (96-112); CO2 (CARBON DIOXIDE) 25 MMOL/L (24-34); CREATININE 0.92 MG/DL (0.70-1.30); GFR AFRICAN AMERICAN 89 ML/MIN (>=60); GFR NON AFRICAN AMERICAN 77 ML/MIN (>=60); GLOBULIN 3.6 G/DL (2.5-4.1); GLUCOSE, SERUM 95 MG/DL (60-99); POTASSIUM, SERUM 3.9 MMOL/L (3.5-5.3); SGOT(AST) 20 U/L (5-40); SGPT(ALT) 19 U/L (5-65); SODIUM, SERUM 144 MMOL/L (135-148); TOTAL BILIRUBIN 0.8 MG/DL (0-1.2); TOTAL PROTEIN 6.4 G/DL (6.0-8.5)
[2017-02-21 15:38] LABS: TROPONIN I 0.19 NG/ML (<0.05)
[2017-02-21] MEDS ORDERED: ATV.5 PO (16:15)
[2017-02-21] MEDS ORDERED: FLOMAX4 PO (16:16)
[2017-02-21] MEDS ORDERED: CELEXA20 PO (16:17)
[2017-02-21] MEDS ORDERED: DUONEB INH (16:17)
[2017-02-21] MEDS ORDERED: SYMBICORT 80/4.1 INH INH (16:18)
[2017-02-21] MEDS ORDERED: COREG6 PO (16:18)
[2017-02-21] MEDS ORDERED: FERROUS SULF325 M1 PO (16:19)
[2017-02-21] MEDS ORDERED: L40 PO (16:19)
[2017-02-21] MEDS ORDERED: LIPITOR20 PO (16:19)
[2017-02-21] MEDS ORDERED: BEN25 PO (16:20)
[2017-02-21] MEDS ORDERED: ZOFRAN4 PO (16:20)
[2017-02-21] MEDS ORDERED: APRES10B PO (16:21)
[2017-02-21] MEDS ORDERED: CLARIT10 PO (16:21)
[2017-02-21] MEDS ORDERED: DSS PO (16:22)
[2017-02-21] MEDS ORDERED: VITC500 PO (16:22)
[2017-02-21] MEDS ORDERED: NITROSTAT0.4 MG SL (16:22)
[2017-02-21] MEDS ORDERED: PROTONIX PO (16:23)
[2017-02-21] MEDS ORDERED: SUCR PO (16:23)
[2017-02-22 06:48] LABS: BUN (BLOOD UREA NITROGEN) 27 MG/DL (6-23); CALCIUM, SERUM 8.3 MG/DL (8.5-10.4); CHLORIDE, SERUM 103 MMOL/L (96-112); CO2 (CARBON DIOXIDE) 19 MMOL/L (24-34); CREATININE 1.32 MG/DL (0.70-1.30); GFR AFRICAN AMERICAN 58 ML/MIN (>=60); GFR NON AFRICAN AMERICAN 50 ML/MIN (>=60); GLUCOSE, SERUM 123 MG/DL (60-99); PHOSPHORUS, SERUM 2.8 MG/DL (2.5-4.5); SODIUM, SERUM 138 MMOL/L (135-148)
[2017-02-22 06:49] LABS: POTASSIUM, SERUM 4.6 MMOL/L (3.5-5.3); TROPONIN I 0.09 NG/ML (<0.05)
[2017-02-22 09:34] LABS: C-REACTIVE PROTEIN 95.4 MG/L (<8.0)
[2017-02-22 10:44] LABS: ULTRASENSITIVE TSH 0.754 MCIU/ML (0.358-3.740)
[2017-02-22 11:35] LABS: PROCALCITONIN 1.17 ng/mL (<0.5)
[2017-02-22 16:49] LABS: ASCORBIC ACID (UR NOT ORDER) NEG (NEG); BILIRUBIN, URINE NEGATIVE (NEG); KETONE, URINE NEGATIVE (NEG); LEUKOCYTE ESTERASE(NOT OR MOD (NEG); WBC (NOT ORDERED) (RFLEX) 41 (0-5)
[2017-02-23 07:21] LABS: A/G RATIO 0.8 (0.7-1.9); ALBUMIN 2.4 G/DL (3.5-5.0); BASOPHILS 0.2 %; BASOPHILS ABSOLUTE 0.02 10/3/uL (0.0-0.16); BUN (BLOOD UREA NITROGEN) 28 MG/DL (6-23); CALCIUM, SERUM 7.9 MG/DL (8.5-10.4); CHLORIDE, SERUM 103 MMOL/L (96-112); CREATININE 1.23 MG/DL (0.70-1.30); EOSINOPHILS 1.4 %; EOSINOPHILS ABSOLUTE 0.16 10/3/uL (0.0-0.53); GFR AFRICAN AMERICAN 63 ML/MIN (>=60); GFR NON AFRICAN AMERICAN 54 ML/MIN (>=60); GLUCOSE, SERUM 119 MG/DL (60-99); HEMOGLOBIN 8.4 g/dL (13.6-17.8); IMMATURE GRANULOCYTES 2.5 %; LYMPHOCYTES 6.9 %; LYMPHOCYTES ABSOLUTE 0.81 10/3/uL (0.67-4.30); MEAN CORPUS HGB CONC 32.9 g/dL (32.0-36.0); MEAN CORPUSCULAR HEMOGLOB 28.4 pg (26.0-34.0); MEAN PLATELET VOLUME 10.5 fL (9.2-13.0); MONOCYTES 5.7 %; MONOCYTES ABSOLUTE 0.67 10/3/uL (0.21-1.20); NEUTROPHILS 83.3 %; NEUTROPHILS ABSOLUTE 9.84 10/3/uL (2.02-8.40); PLATELET COUNT 166 10/3/uL (150-400); POTASSIUM, SERUM 3.9 MMOL/L (3.5-5.3); RBC DISTRIBUTION WIDTH 16.6 % (12.0-16.0); RED CELL COUNT 2.96 10/6/uL (4.7-6.1); SGOT(AST) 225 U/L (5-40); SGPT(ALT) 273 U/L (5-65); SODIUM, SERUM 139 MMOL/L (135-148); TOTAL PROTEIN 5.4 G/DL (6.0-8.5); WHITE BLOOD CELLS 11.8 10/3/uL (4.5-10.5)
[2017-02-23 07:23] LABS: ALKALINE PHOSPHATASE 305 U/L (45-117); CO2 (CARBON DIOXIDE) 27 MMOL/L (24-34); TOTAL BILIRUBIN 4.8 MG/DL (0-1.2)
[2017-02-23 07:52] LABS: HEMATOCRIT 25.5 % (40.0-51.0)
[2017-02-23 07:53] LABS: MANUAL DIFF NO %; MEAN CORPUSCULAR VOLUME 86.1 fL (80-100)
[2017-02-24 11:22] LABS: HEMATOCRIT 23.6 % (40.0-51.0); HEMOGLOBIN 7.6 g/dL (13.6-17.8); MEAN CORPUS HGB CONC 32.2 g/dL (32.0-36.0); MEAN CORPUSCULAR HEMOGLOB 28.4 pg (26.0-34.0); MEAN CORPUSCULAR VOLUME 88.1 fL (80-100); MEAN PLATELET VOLUME 11.1 fL (9.2-13.0); PLATELET COUNT 187 10/3/uL (150-400); RBC DISTRIBUTION WIDTH 17.2 % (12.0-16.0); RED CELL COUNT 2.68 10/6/uL (4.7-6.1); WHITE BLOOD CELLS 13.1 10/3/uL (4.5-10.5)
[2017-02-24 11:23] LABS: MANUAL DIFF YES %
[2017-02-24 11:39] LABS: A/G RATIO 0.8 (0.7-1.9); ALBUMIN 2.4 G/DL (3.5-5.0); CALCIUM, SERUM 7.7 MG/DL (8.5-10.4); CHLORIDE, SERUM 107 MMOL/L (96-112); CO2 (CARBON DIOXIDE) 28 MMOL/L (24-34); CREATININE 1.49 MG/DL (0.70-1.30); GFR AFRICAN AMERICAN 50 ML/MIN (>=60); GFR NON AFRICAN AMERICAN 43 ML/MIN (>=60); GLOBULIN 3.2 G/DL (2.5-4.1); GLUCOSE, SERUM 132 MG/DL (60-99); SGOT(AST) 149 U/L (5-40); SGPT(ALT) 187 U/L (5-65); SODIUM, SERUM 142 MMOL/L (135-148); TOTAL PROTEIN 5.6 G/DL (6.0-8.5)
[2017-02-24 11:42] LABS: ALKALINE PHOSPHATASE 322 U/L (45-117); BUN (BLOOD UREA NITROGEN) 35 MG/DL (6-23); TOTAL BILIRUBIN 3.3 MG/DL (0-1.2)
[2017-02-24 12:15] LABS: ANISOCYTOSIS 1+ (5-10/OIF) (0-5/OIF); BAND NEUTROPHILS 3 %; IMMATURE GRANS ABSOLUTE (CALC) 0.52 10/3/uL (0.0-0.11); LYMPHOCYTES 3 %; LYMPHOCYTES ABSOLUTE (CALC) 0.39 10/3/uL (0.67-4.30); METAMYELOCYTES 2 %; MONOCYTES 6 %; MONOCYTES ABSOLUTE (CALC) 0.79 10/3/uL (0.21-1.20); MYELOCYTES 2 %; PLATELET ESTIMATE ADQ (ADEQUATE); SEGMENTED NEUTROPHIL (0) 84 %; TOTAL NUCLEATED CELLS 100
[2017-02-24 12:16] LABS: MACROCYTES 1+ (5-10/OIF) (0-5/OIF)
[2017-02-25 06:39] LABS: HEMATOCRIT 22.3 % (40.0-51.0); HEMOGLOBIN 7.3 g/dL (13.6-17.8); MEAN CORPUS HGB CONC 32.7 g/dL (32.0-36.0); MEAN CORPUSCULAR HEMOGLOB 28.9 pg (26.0-34.0); MEAN CORPUSCULAR VOLUME 88.1 fL (80-100); MEAN PLATELET VOLUME 11.3 fL (9.2-13.0); PLATELET COUNT 214 10/3/uL (150-400); RBC DISTRIBUTION WIDTH 17.1 % (12.0-16.0); RED CELL COUNT 2.53 10/6/uL (4.7-6.1); WHITE BLOOD CELLS 11.4 10/3/uL (4.5-10.5)
[2017-02-25 06:40] LABS: MANUAL DIFF YES %
[2017-02-25 06:54] LABS: ALBUMIN 2.1 G/DL (3.5-5.0); CALCIUM, SERUM 7.9 MG/DL (8.5-10.4); CHLORIDE, SERUM 108 MMOL/L (96-112); CO2 (CARBON DIOXIDE) 25 MMOL/L (24-34); CREATININE 1.36 MG/DL (0.70-1.30); GFR AFRICAN AMERICAN 56 ML/MIN (>=60); GFR NON AFRICAN AMERICAN 48 ML/MIN (>=60); SODIUM, SERUM 141 MMOL/L (135-148); TOTAL PROTEIN 5.6 G/DL (6.0-8.5)
[2017-02-25 06:55] LABS: A/G RATIO 0.6 (0.7-1.9); GLOBULIN 3.5 G/DL (2.5-4.1); SGPT(ALT) 139 U/L (5-65)
[2017-02-25 06:57] LABS: ALKALINE PHOSPHATASE 284 U/L (45-117); BUN (BLOOD UREA NITROGEN) 28 MG/DL (6-23); DIRECT BILIRUBIN 0.6 MG/DL (0.0-0.4); GLUCOSE, SERUM 101 MG/DL (60-99); INDIRECT BILIRUBIN(NOT ORDER) 0.9 MG/DL (0.1-0.9); POTASSIUM, SERUM 4.2 MMOL/L (3.5-5.3); TOTAL BILIRUBIN 1.5 MG/DL (0-1.2)
[2017-02-25 06:58] LABS: SGOT(AST) 89 U/L (5-40)
[2017-02-25 07:00] LABS: ANISOCYTOSIS 1+ (5-10/OIF) (0-5/OIF); BAND NEUTROPHILS 13 %; EOSINOPHILS 1 %; EOSINOPHILS ABSOLUTE (CALC) 0.11 10/3/uL (0.0-0.53); IMMATURE GRANS ABSOLUTE (CALC) 0.68 10/3/uL (0.0-0.11); LYMPHOCYTES 7 %; METAMYELOCYTES 5 %; MONOCYTES 3 %; MONOCYTES ABSOLUTE (CALC) 0.34 10/3/uL (0.21-1.20); MYELOCYTES 1 %; NEUTROPHILS ABSOLUTE (CALC) 9.46 10/3/uL (2.02-8.40); PLATELET ESTIMATE ADQ (ADEQUATE); SEGMENTED NEUTROPHIL (0) 70 %; TOTAL NUCLEATED CELLS 100
[2017-02-25 07:01] LABS: MACROCYTES 1+ (5-10/OIF) (0-5/OIF)
[2017-02-25 19:20] LABS: ALLENS TEST Pos; BE (BASE EXCESS) 0.2 MEQ/L (0 +/- 2.5); CARBOXYHEMOGLOBIN 0.5 % (0-3); HCO3 (ACTUAL BICARBONATE) 23.9 MEQ/L (23-27); INSTRUMENT SERIAL # 35151; METHEMOGLOBIN 0.7 % (0-3); O2 CONTENT 10.1 VOL% (18-24); OPERATOR ID 17370; PCO2 (CO2 TENSION) 35 MMHG (35-45); PO2 (O2 TENSION) 61 MMHG (79-93); SAMPLE Arterial; pH 7.46 (7.37-7.43)
[2017-02-26 06:34] LABS: BASOPHILS 0.3 %; BASOPHILS ABSOLUTE 0.04 10/3/uL (0.0-0.16); EOSINOPHILS 1.6 %; EOSINOPHILS ABSOLUTE 0.24 10/3/uL (0.0-0.53); HEMATOCRIT 26.4 % (40.0-51.0); HEMOGLOBIN 8.9 g/dL (13.6-17.8); IMMATURE GRANULOCYTES 5.5 %; IMMATURE GRANULOCYTES ABSOLUTE 0.82 10/3/uL (0.0-0.11); LYMPHOCYTES 6.5 %; LYMPHOCYTES ABSOLUTE 0.97 10/3/uL (0.67-4.30); MANUAL DIFF NO %; MEAN CORPUS HGB CONC 33.7 g/dL (32.0-36.0); MEAN CORPUSCULAR HEMOGLOB 29.3 pg (26.0-34.0); MEAN CORPUSCULAR VOLUME 86.8 fL (80-100); MEAN PLATELET VOLUME 9.8 fL (9.2-13.0); MONOCYTES 4.6 %; MONOCYTES ABSOLUTE 0.69 10/3/uL (0.21-1.20); NEUTROPHILS 81.5 %; NEUTROPHILS ABSOLUTE 12.19 10/3/uL (2.02-8.40); PLATELET COUNT 227 10/3/uL (150-400); RBC DISTRIBUTION WIDTH 16.2 % (12.0-16.0); RED CELL COUNT 3.04 10/6/uL (4.7-6.1)
[2017-02-26 06:44] LABS: A/G RATIO 0.6 (0.7-1.9); ALBUMIN 2.1 G/DL (3.5-5.0); ALKALINE PHOSPHATASE 266 U/L (45-117); BUN (BLOOD UREA NITROGEN) 22 MG/DL (6-23); CALCIUM, SERUM 7.5 MG/DL (8.5-10.4); CHLORIDE, SERUM 105 MMOL/L (96-112); CO2 (CARBON DIOXIDE) 26 MMOL/L (24-34); CREATININE 1.54 MG/DL (0.70-1.30); GFR AFRICAN AMERICAN 48 ML/MIN (>=60); GFR NON AFRICAN AMERICAN 41 ML/MIN (>=60); GLOBULIN 3.8 G/DL (2.5-4.1); GLUCOSE, SERUM 96 MG/DL (60-99); POTASSIUM, SERUM 3.5 MMOL/L (3.5-5.3); SGOT(AST) 44 U/L (5-40); SGPT(ALT) 101 U/L (5-65); SODIUM, SERUM 139 MMOL/L (135-148); TOTAL BILIRUBIN 1.2 MG/DL (0-1.2); TOTAL PROTEIN 5.9 G/DL (6.0-8.5)
[2017-02-26 07:39] LABS: BAND NEUTROPHILS 3 %; BASOPHILS 1 %; BASOPHILS ABSOLUTE (CALC) 0.15 10/3/uL (0.0-0.16); LYMPHOCYTES 9 %; LYMPHOCYTES ABSOLUTE (CALC) 1.35 10/3/uL (0.67-4.30); METAMYELOCYTES 1 %; MONOCYTES 3 %; MONOCYTES ABSOLUTE (CALC) 0.45 10/3/uL (0.21-1.20); MYELOCYTES 1 %; NEUTROPHILS ABSOLUTE (CALC) 12.75 10/3/uL (2.02-8.40); PLATELET ESTIMATE ADQ (ADEQUATE); SEGMENTED NEUTROPHIL (0) 82 %; TOTAL NUCLEATED CELLS 100
[2017-02-26 07:42] LABS: ANISOCYTOSIS 1+ (5-10/OIF) (0-5/OIF); MACROCYTES 1+ (5-10/OIF) (0-5/OIF)
[2017-02-27 06:09] LABS: HEMATOCRIT 24.7 % (40.0-51.0); MEAN CORPUS HGB CONC 32.4 g/dL (32.0-36.0); MEAN CORPUSCULAR HEMOGLOB 29.1 pg (26.0-34.0); MEAN PLATELET VOLUME 10.4 fL (9.2-13.0); PLATELET COUNT 219 10/3/uL (150-400); RBC DISTRIBUTION WIDTH 16.2 % (12.0-16.0); RED CELL COUNT 2.75 10/6/uL (4.7-6.1); WHITE BLOOD CELLS 14.2 10/3/uL (4.5-10.5)
[2017-02-27 06:14] LABS: MEAN CORPUSCULAR VOLUME 89.8 fL (80-100)
[2017-02-27 06:15] LABS: MANUAL DIFF YES %
[2017-02-27 06:27] LABS: A/G RATIO 0.5 (0.7-1.9); ALBUMIN 1.9 G/DL (3.5-5.0); BUN (BLOOD UREA NITROGEN) 23 MG/DL (6-23); CALCIUM, SERUM 7.3 MG/DL (8.5-10.4); CHLORIDE, SERUM 102 MMOL/L (96-112); CO2 (CARBON DIOXIDE) 24 MMOL/L (24-34); CREATININE 1.63 MG/DL (0.70-1.30); GFR AFRICAN AMERICAN 45 ML/MIN (>=60); GFR NON AFRICAN AMERICAN 39 ML/MIN (>=60); GLOBULIN 3.5 G/DL (2.5-4.1); GLUCOSE, SERUM 94 MG/DL (60-99); POTASSIUM, SERUM 3.4 MMOL/L (3.5-5.3); SGOT(AST) 23 U/L (5-40); SGPT(ALT) 67 U/L (5-65); SODIUM, SERUM 136 MMOL/L (135-148); TOTAL BILIRUBIN 1.1 MG/DL (0-1.2); TOTAL PROTEIN 5.4 G/DL (6.0-8.5)
[2017-02-27 06:28] LABS: ALKALINE PHOSPHATASE 208 U/L (45-117)
[2017-02-27 08:10] LABS: LYMPHOCYTES 10 %; LYMPHOCYTES ABSOLUTE (CALC) 1.42 10/3/uL (0.67-4.30); MONOCYTES 3 %; MONOCYTES ABSOLUTE (CALC) 0.43 10/3/uL (0.21-1.20); NEUTROPHILS ABSOLUTE (CALC) 12.35 10/3/uL (2.02-8.40); PLATELET ESTIMATE ADQ (ADEQUATE); SEGMENTED NEUTROPHIL (0) 87 %; TOTAL NUCLEATED CELLS 100
[2017-02-27 08:11] LABS: RBC MORPHOLOGY NORM (NORMAL)
[2017-02-27 18:16] LABS: HEMATOCRIT 27.1 % (40.0-51.0)
[2017-02-28 04:53] LABS: BASOPHILS 0.1 %; BASOPHILS ABSOLUTE 0.02 10/3/uL (0.0-0.16); EOSINOPHILS 1.4 %; HEMATOCRIT 25.9 % (40.0-51.0); HEMOGLOBIN 8.5 g/dL (13.6-17.8); IMMATURE GRANULOCYTES 2.6 %; IMMATURE GRANULOCYTES ABSOLUTE 0.38 10/3/uL (0.0-0.11); LYMPHOCYTES 6.1 %; MEAN CORPUS HGB CONC 32.8 g/dL (32.0-36.0); MEAN CORPUSCULAR HEMOGLOB 29.6 pg (26.0-34.0); MEAN CORPUSCULAR VOLUME 90.2 fL (80-100); MEAN PLATELET VOLUME 10.2 fL (9.2-13.0); MONOCYTES 4.6 %; MONOCYTES ABSOLUTE 0.68 10/3/uL (0.21-1.20); NEUTROPHILS 85.2 %; PLATELET COUNT 242 10/3/uL (150-400); RBC DISTRIBUTION WIDTH 16.1 % (12.0-16.0); RED CELL COUNT 2.87 10/6/uL (4.7-6.1); WHITE BLOOD CELLS 14.8 10/3/uL (4.5-10.5)
[2017-02-28 04:56] LABS: MANUAL DIFF NO %
[2017-02-28 05:05] LABS: A/G RATIO 0.5 (0.7-1.9); ALBUMIN 1.9 G/DL (3.5-5.0); BUN (BLOOD UREA NITROGEN) 26 MG/DL (6-23); CALCIUM, SERUM 7.1 MG/DL (8.5-10.4); CHLORIDE, SERUM 103 MMOL/L (96-112); CO2 (CARBON DIOXIDE) 25 MMOL/L (24-34); CREATININE 2.08 MG/DL (0.70-1.30); GFR AFRICAN AMERICAN 33 ML/MIN (>=60); GFR NON AFRICAN AMERICAN 29 ML/MIN (>=60); GLOBULIN 3.7 G/DL (2.5-4.1); GLUCOSE, SERUM 93 MG/DL (60-99); SGOT(AST) 22 U/L (5-40); SGPT(ALT) 54 U/L (5-65); SODIUM, SERUM 135 MMOL/L (135-148); TOTAL BILIRUBIN 0.9 MG/DL (0-1.2); TOTAL PROTEIN 5.6 G/DL (6.0-8.5)
[2017-02-28 05:06] LABS: ALKALINE PHOSPHATASE 178 U/L (45-117); POTASSIUM, SERUM 4.5 MMOL/L (3.5-5.3)
[2017-02-28 16:48] LABS: PROCALCITONIN 0.23 ng/mL (<0.5)
[2017-02-28 17:31] LABS: HEMATOCRIT 25.9 % (40.0-51.0); HEMOGLOBIN 8.3 g/dL (13.6-17.8)
[2017-02-28 23:13] LABS: HEMATOCRIT 24.6 % (40.0-51.0); HEMOGLOBIN 8.3 g/dL (13.6-17.8)
[2017-03-01 06:37] LABS: BASOPHILS 0.2 %; BASOPHILS ABSOLUTE 0.03 10/3/uL (0.0-0.16); EOSINOPHILS 1.7 %; EOSINOPHILS ABSOLUTE 0.24 10/3/uL (0.0-0.53); HEMOGLOBIN 8.8 g/dL (13.6-17.8); IMMATURE GRANULOCYTES 2.1 %; LYMPHOCYTES 6.4 %; LYMPHOCYTES ABSOLUTE 0.91 10/3/uL (0.67-4.30); MEAN CORPUS HGB CONC 32.5 g/dL (32.0-36.0); MEAN CORPUSCULAR HEMOGLOB 29.5 pg (26.0-34.0); MEAN CORPUSCULAR VOLUME 90.9 fL (80-100); MONOCYTES 5.3 %; MONOCYTES ABSOLUTE 0.76 10/3/uL (0.21-1.20); NEUTROPHILS 84.3 %; NEUTROPHILS ABSOLUTE 11.99 10/3/uL (2.02-8.40); PLATELET COUNT 266 10/3/uL (150-400); RBC DISTRIBUTION WIDTH 15.8 % (12.0-16.0); RED CELL COUNT 2.98 10/6/uL (4.7-6.1); WHITE BLOOD CELLS 14.2 10/3/uL (4.5-10.5)
[2017-03-01 06:38] LABS: HEMATOCRIT 27.1 % (40.0-51.0); MANUAL DIFF NO %
[2017-03-01 06:48] LABS: CALCIUM, SERUM 7.5 MG/DL (8.5-10.4); CHLORIDE, SERUM 103 MMOL/L (96-112); CO2 (CARBON DIOXIDE) 23 MMOL/L (24-34); CREATININE 2.36 MG/DL (0.70-1.30); GAMMA GT 126 U/L (5-85); GFR AFRICAN AMERICAN 29 ML/MIN (>=60); GFR NON AFRICAN AMERICAN 25 ML/MIN (>=60); GLUCOSE, SERUM 108 MG/DL (60-99); POTASSIUM, SERUM 4.5 MMOL/L (3.5-5.3); SGOT(AST) 17 U/L (5-40); SGPT(ALT) 39 U/L (5-65); SODIUM, SERUM 136 MMOL/L (135-148); TOTAL BILIRUBIN 0.8 MG/DL (0-1.2); TOTAL PROTEIN 6.6 G/DL (6.0-8.5)
[2017-03-01 06:50] LABS: A/G RATIO 0.6 (0.7-1.9); ALBUMIN 2.5 G/DL (3.5-5.0); ALKALINE PHOSPHATASE 159 U/L (45-117); BUN (BLOOD UREA NITROGEN) 33 MG/DL (6-23); GLOBULIN 4.1 G/DL (2.5-4.1)
[2017-03-01 11:18] LABS: HEMATOCRIT 25.5 % (40.0-51.0)
[2017-03-01 13:41] LABS: HEMATOCRIT 27.3 % (40.0-51.0); HEMOGLOBIN 8.8 g/dL (13.6-17.8); MANUAL DIFF YES %; MEAN CORPUS HGB CONC 32.2 g/dL (32.0-36.0); MEAN CORPUSCULAR HEMOGLOB 29.5 pg (26.0-34.0); MEAN CORPUSCULAR VOLUME 91.6 fL (80-100); MEAN PLATELET VOLUME 10.3 fL (9.2-13.0); PLATELET COUNT 241 10/3/uL (150-400); RBC DISTRIBUTION WIDTH 15.9 % (12.0-16.0); RED CELL COUNT 2.98 10/6/uL (4.7-6.1); WHITE BLOOD CELLS 13.2 10/3/uL (4.5-10.5)
[2017-03-01 13:54] LABS: ALBUMIN 2.6 G/DL (3.5-5.0); BUN (BLOOD UREA NITROGEN) 33 MG/DL (6-23); CALCIUM, SERUM 7.5 MG/DL (8.5-10.4); CHLORIDE, SERUM 105 MMOL/L (96-112); CO2 (CARBON DIOXIDE) 23 MMOL/L (24-34); CREATININE 2.41 MG/DL (0.70-1.30); GFR AFRICAN AMERICAN 28 ML/MIN (>=60); GFR NON AFRICAN AMERICAN 24 ML/MIN (>=60); GLUCOSE, SERUM 107 MG/DL (60-99); PHOSPHORUS, SERUM 3.2 MG/DL (2.5-4.5); POTASSIUM, SERUM 4.6 MMOL/L (3.5-5.3); SODIUM, SERUM 135 MMOL/L (135-148)
[2017-03-01 14:02] LABS: BAND NEUTROPHILS 6 %; IMMATURE GRANS ABSOLUTE (CALC) 0.13 10/3/uL (0.0-0.11); LYMPHOCYTES 6 %; LYMPHOCYTES ABSOLUTE (CALC) 0.79 10/3/uL (0.67-4.30); METAMYELOCYTES 1 %; MONOCYTES 1 %; MONOCYTES ABSOLUTE (CALC) 0.13 10/3/uL (0.21-1.20); NEUTROPHILS ABSOLUTE (CALC) 12.14 10/3/uL (2.02-8.40); PLATELET ESTIMATE ADQ (ADEQUATE); SEGMENTED NEUTROPHIL (0) 86 %; TOTAL NUCLEATED CELLS 100
[2017-03-01 14:03] LABS: POLYCHROMASIA 1+ (2-5/OIF) (0-1/OIF)
[2017-03-01 18:14] LABS: ALLENS TEST Pos; BE (BASE EXCESS) -5.9 MEQ/L (0 +/- 2.5); CARBOXYHEMOGLOBIN 0.2 % (0-3); DEVICE NC; HCO3 (ACTUAL BICARBONATE) 18.5 MEQ/L (23-27); HEMOBLOGIN CONTENT 10.1 G/DL (14-18); INSTRUMENT SERIAL # 35151; METHEMOGLOBIN 0.7 % (0-3); O2 CONTENT 12.7 VOL% (18-24); PCO2 (CO2 TENSION) 32 MMHG (35-45); PO2 (O2 TENSION) 59 MMHG (79-93); SAMPLE Arterial; pH 7.38 (7.37-7.43)
[2017-03-01 19:28] LABS: HEMATOCRIT 25.5 % (40.0-51.0); HEMOGLOBIN 8.2 g/dL (13.6-17.8); MEAN CORPUS HGB CONC 32.2 g/dL (32.0-36.0); MEAN CORPUSCULAR HEMOGLOB 29.4 pg (26.0-34.0); MEAN CORPUSCULAR VOLUME 91.4 fL (80-100); MEAN PLATELET VOLUME 10.1 fL (9.2-13.0); PLATELET COUNT 264 10/3/uL (150-400); RBC DISTRIBUTION WIDTH 15.7 % (12.0-16.0); RED CELL COUNT 2.79 10/6/uL (4.7-6.1)
[2017-03-01 19:29] LABS: MANUAL DIFF YES %
[2017-03-01 19:40] LABS: BUN (BLOOD UREA NITROGEN) 36 MG/DL (6-23); CALCIUM, SERUM 7.6 MG/DL (8.5-10.4); CHLORIDE, SERUM 104 MMOL/L (96-112); CO2 (CARBON DIOXIDE) 24 MMOL/L (24-34); CREATININE 2.34 MG/DL (0.70-1.30); GFR AFRICAN AMERICAN 29 ML/MIN (>=60); GFR NON AFRICAN AMERICAN 25 ML/MIN (>=60); GLUCOSE, SERUM 121 MG/DL (60-99); POTASSIUM, SERUM 4.5 MMOL/L (3.5-5.3); SODIUM, SERUM 138 MMOL/L (135-148)
[2017-03-01 19:54] LABS: BAND NEUTROPHILS 6 %; LYMPHOCYTES 3 %; LYMPHOCYTES ABSOLUTE (CALC) 0.39 10/3/uL (0.67-4.30); MONOCYTES 4 %; MONOCYTES ABSOLUTE (CALC) 0.52 10/3/uL (0.21-1.20); NEUTROPHILS ABSOLUTE (CALC) 12.09 10/3/uL (2.02-8.40); SEGMENTED NEUTROPHIL (0) 87 %; TOTAL NUCLEATED CELLS 100
[2017-03-01 19:55] LABS: PLATELET ESTIMATE ADQ (ADEQUATE)
[2017-03-01 20:45] LABS: TOTAL BILIRUBIN 0.7 MG/DL (0-1.2); TOTAL PROTEIN 6.2 G/DL (6.0-8.5)
[2017-03-01 20:47] LABS: ALBUMIN 2.7 G/DL (3.5-5.0); ALKALINE PHOSPHATASE 127 U/L (45-117); DIRECT BILIRUBIN 0.4 MG/DL (0.0-0.4); INDIRECT BILIRUBIN(NOT ORDER) 0.3 MG/DL (0.1-0.9); SGOT(AST) 12 U/L (5-40); SGPT(ALT) 33 U/L (5-65)
[2017-03-02 03:57] LABS: BE (BASE EXCESS) -3.2 MEQ/L (0 +/- 2.5); CARBOXYHEMOGLOBIN 0.9 % (0-3); HCO3 (ACTUAL BICARBONATE) 22.6 MEQ/L (23-27); HEMOBLOGIN CONTENT 11.4 G/DL (14-18); INSTRUMENT SERIAL # 8083; METHEMOGLOBIN 0.2 % (0-3); O2 CONTENT 15.6 VOL% (18-24); OPERATOR ID 30013; PCO2 (CO2 TENSION) 44 MMHG (35-45); PO2 (O2 TENSION) 97 MMHG (79-93); SAMPLE Arterial; pH 7.33 (7.37-7.43)
[2017-03-02 03:58] LABS: ALLENS TEST Pos; BIPAP 16/6 cm.H2O
[2017-03-02 04:17] LABS: BASOPHILS 0.2 %; BASOPHILS ABSOLUTE 0.02 10/3/uL (0.0-0.16); EOSINOPHILS 1.5 %; EOSINOPHILS ABSOLUTE 0.18 10/3/uL (0.0-0.53); HEMATOCRIT 24.4 % (40.0-51.0); HEMOGLOBIN 7.9 g/dL (13.6-17.8); IMMATURE GRANULOCYTES 1.1 %; IMMATURE GRANULOCYTES ABSOLUTE 0.13 10/3/uL (0.0-0.11); LYMPHOCYTES 5.7 %; LYMPHOCYTES ABSOLUTE 0.67 10/3/uL (0.67-4.30); MEAN CORPUS HGB CONC 32.4 g/dL (32.0-36.0); MEAN CORPUSCULAR HEMOGLOB 29.5 pg (26.0-34.0); MEAN PLATELET VOLUME 9.8 fL (9.2-13.0); MONOCYTES 6.5 %; MONOCYTES ABSOLUTE 0.76 10/3/uL (0.21-1.20); NEUTROPHILS ABSOLUTE 9.98 10/3/uL (2.02-8.40); PLATELET COUNT 254 10/3/uL (150-400); RBC DISTRIBUTION WIDTH 15.7 % (12.0-16.0); RED CELL COUNT 2.68 10/6/uL (4.7-6.1); WHITE BLOOD CELLS 11.7 10/3/uL (4.5-10.5)
[2017-03-02 04:18] LABS: MANUAL DIFF NO %
[2017-03-02 04:37] LABS: ALBUMIN 2.9 G/DL (3.5-5.0); ALKALINE PHOSPHATASE 116 U/L (45-117); BUN (BLOOD UREA NITROGEN) 39 MG/DL (6-23); CALCIUM, SERUM 7.7 MG/DL (8.5-10.4); CHLORIDE, SERUM 103 MMOL/L (96-112); CO2 (CARBON DIOXIDE) 24 MMOL/L (24-34); CREATININE 2.25 MG/DL (0.70-1.30); DIRECT BILIRUBIN 0.3 MG/DL (0.0-0.4); GFR AFRICAN AMERICAN 30 ML/MIN (>=60); GFR NON AFRICAN AMERICAN 26 ML/MIN (>=60); GLUCOSE, SERUM 100 MG/DL (60-99); INDIRECT BILIRUBIN(NOT ORDER) 0.7 MG/DL (0.1-0.9); PHOSPHORUS, SERUM 3.6 MG/DL (2.5-4.5); POTASSIUM, SERUM 4.3 MMOL/L (3.5-5.3); SGOT(AST) 11 U/L (5-40); SGPT(ALT) 26 U/L (5-65); SODIUM, SERUM 137 MMOL/L (135-148); TOTAL PROTEIN 6.3 G/DL (6.0-8.5)
[2017-03-02 08:18] LABS: CREATININE, URINE 33.6 MG/DL
[2017-03-02 17:30] LABS: HEMATOCRIT 24.4 % (40.0-51.0); HEMOGLOBIN 7.9 g/dL (13.6-17.8)
[2017-03-02 22:34] LABS: POTASSIUM, SERUM 4.4 MMOL/L (3.5-5.3)
[2017-03-03 04:40] LABS: BASOPHILS 0.1 %; BASOPHILS ABSOLUTE 0.01 10/3/uL (0.0-0.16); EOSINOPHILS 1.1 %; EOSINOPHILS ABSOLUTE 0.13 10/3/uL (0.0-0.53); HEMATOCRIT 23.7 % (40.0-51.0); HEMOGLOBIN 7.7 g/dL (13.6-17.8); IMMATURE GRANULOCYTES 0.9 %; IMMATURE GRANULOCYTES ABSOLUTE 0.11 10/3/uL (0.0-0.11); LYMPHOCYTES 3.8 %; LYMPHOCYTES ABSOLUTE 0.46 10/3/uL (0.67-4.30); MEAN CORPUS HGB CONC 32.5 g/dL (32.0-36.0); MEAN CORPUSCULAR HEMOGLOB 29.8 pg (26.0-34.0); MEAN CORPUSCULAR VOLUME 91.9 fL (80-100); MEAN PLATELET VOLUME 10.2 fL (9.2-13.0); MONOCYTES 6.8 %; MONOCYTES ABSOLUTE 0.82 10/3/uL (0.21-1.20); NEUTROPHILS 87.3 %; NEUTROPHILS ABSOLUTE 10.57 10/3/uL (2.02-8.40); PLATELET COUNT 265 10/3/uL (150-400); RBC DISTRIBUTION WIDTH 15.8 % (12.0-16.0); RED CELL COUNT 2.58 10/6/uL (4.7-6.1); WHITE BLOOD CELLS 12.1 10/3/uL (4.5-10.5)
[2017-03-03 04:43] LABS: ALBUMIN 3.3 G/DL (3.5-5.0); CALCIUM, SERUM 7.7 MG/DL (8.5-10.4); CHLORIDE, SERUM 103 MMOL/L (96-112); CO2 (CARBON DIOXIDE) 25 MMOL/L (24-34); CREATININE 2.64 MG/DL (0.70-1.30); GFR AFRICAN AMERICAN 25 ML/MIN (>=60); GFR NON AFRICAN AMERICAN 22 ML/MIN (>=60); POTASSIUM, SERUM 4.3 MMOL/L (3.5-5.3); SODIUM, SERUM 139 MMOL/L (135-148)
[2017-03-03 04:45] LABS: BUN (BLOOD UREA NITROGEN) 46 MG/DL (6-23); GLUCOSE, SERUM 76 MG/DL (60-99); PHOSPHORUS, SERUM 4.8 MG/DL (2.5-4.5)
[2017-03-03 04:46] LABS: MANUAL DIFF NO %
[2017-03-03 13:11] LABS: ALBUMIN 3.2 G/DL (3.5-5.0); CALCIUM, SERUM 7.7 MG/DL (8.5-10.4); CHLORIDE, SERUM 103 MMOL/L (96-112); CO2 (CARBON DIOXIDE) 21 MMOL/L (24-34); CREATININE 2.88 MG/DL (0.70-1.30); GFR AFRICAN AMERICAN 23 ML/MIN (>=60); GFR NON AFRICAN AMERICAN 19 ML/MIN (>=60); GLUCOSE, SERUM 80 MG/DL (60-99); PHOSPHORUS, SERUM 5.4 MG/DL (2.5-4.5); POTASSIUM, SERUM 4.4 MMOL/L (3.5-5.3); SODIUM, SERUM 138 MMOL/L (135-148)
[2017-03-03 13:12] LABS: BUN (BLOOD UREA NITROGEN) 50 MG/DL (6-23)
[2017-03-03 16:16] LABS: HEMATOCRIT 24.2 % (40.0-51.0); HEMOGLOBIN 7.8 g/dL (13.6-17.8)
[2017-03-04 01:45] LABS: ALLENS TEST Pos; BE (BASE EXCESS) -1.9 MEQ/L (0 +/- 2.5); CARBOXYHEMOGLOBIN 0.9 % (0-3); HCO3 (ACTUAL BICARBONATE) 25.5 MEQ/L (23-27); INSTRUMENT SERIAL # 8083; METHEMOGLOBIN 0.4 % (0-3); O2 CONTENT 11.2 VOL% (18-24); PCO2 (CO2 TENSION) 60 MMHG (35-45); PO2 (O2 TENSION) 113 MMHG (79-93); SAMPLE Arterial; pH 7.25 (7.37-7.43)
[2017-03-04 04:01] LABS: BE (BASE EXCESS) -2.9 MEQ/L (0 +/- 2.5); INSTRUMENT SERIAL # 8083; PCO2 (CO2 TENSION) 55 MMHG (35-45); PO2 (O2 TENSION) 105 MMHG (79-93); pH 7.26 (7.37-7.43)
[2017-03-04 04:02] LABS: ALLENS TEST Pos; BIPAP 14/6 cm.H2O; CARBOXYHEMOGLOBIN 1.7 % (0-3); HCO3 (ACTUAL BICARBONATE) 24.1 MEQ/L (23-27); HEMOBLOGIN CONTENT 6.9 G/DL (14-18); METHEMOGLOBIN 0.5 % (0-3); O2 CONTENT 9.5 VOL% (18-24); OPERATOR ID 17370; SAMPLE Arterial
[2017-03-04 04:41] LABS: HEMATOCRIT 22.2 % (40.0-51.0); HEMOGLOBIN 7.2 g/dL (13.6-17.8); MEAN CORPUS HGB CONC 32.4 g/dL (32.0-36.0); MEAN CORPUSCULAR VOLUME 92.5 fL (80-100); MEAN PLATELET VOLUME 9.7 fL (9.2-13.0); PLATELET COUNT 245 10/3/uL (150-400); WHITE BLOOD CELLS 9.1 10/3/uL (4.5-10.5)
[2017-03-04 04:42] LABS: MANUAL DIFF YES %
[2017-03-04 04:53] LABS: CALCIUM, SERUM 7.9 MG/DL (8.5-10.4); CHLORIDE, SERUM 104 MMOL/L (96-112); CO2 (CARBON DIOXIDE) 22 MMOL/L (24-34); POTASSIUM, SERUM 4.4 MMOL/L (3.5-5.3); SODIUM, SERUM 139 MMOL/L (135-148)
[2017-03-04 04:54] LABS: BUN (BLOOD UREA NITROGEN) 61 MG/DL (6-23); CREATININE 3.41 MG/DL (0.70-1.30); GFR AFRICAN AMERICAN 18 ML/MIN (>=60); GFR NON AFRICAN AMERICAN 16 ML/MIN (>=60); GLUCOSE, SERUM 114 MG/DL (60-99)
[2017-03-04 05:12] LABS: BAND NEUTROPHILS 8 %; LYMPHOCYTES 8 %; LYMPHOCYTES ABSOLUTE (CALC) 0.73 10/3/uL (0.67-4.30); MONOCYTES 4 %; MONOCYTES ABSOLUTE (CALC) 0.36 10/3/uL (0.21-1.20); NEUTROPHILS ABSOLUTE (CALC) 8.01 10/3/uL (2.02-8.40); PLATELET ESTIMATE ADQ (ADEQUATE); SEGMENTED NEUTROPHIL (0) 80 %; TOTAL NUCLEATED CELLS 100
[2017-03-04 05:13] LABS: RBC MORPHOLOGY NORM (NORMAL)
[2017-03-04 16:08] LABS: HEMATOCRIT 22.8 % (40.0-51.0); HEMOGLOBIN 7.3 g/dL (13.6-17.8)
[2017-03-05 04:25] LABS: BASOPHILS 0.2 %; BASOPHILS ABSOLUTE 0.01 10/3/uL (0.0-0.16); EOSINOPHILS 2.7 %; EOSINOPHILS ABSOLUTE 0.17 10/3/uL (0.0-0.53); HEMATOCRIT 22.6 % (40.0-51.0); HEMOGLOBIN 7.2 g/dL (13.6-17.8); IMMATURE GRANULOCYTES 0.6 %; IMMATURE GRANULOCYTES ABSOLUTE 0.04 10/3/uL (0.0-0.11); LYMPHOCYTES 7.3 %; LYMPHOCYTES ABSOLUTE 0.47 10/3/uL (0.67-4.30); MEAN CORPUS HGB CONC 31.9 g/dL (32.0-36.0); MEAN CORPUSCULAR HEMOGLOB 29.5 pg (26.0-34.0); MEAN CORPUSCULAR VOLUME 92.6 fL (80-100); MEAN PLATELET VOLUME 10.2 fL (9.2-13.0); MONOCYTES 7.7 %; MONOCYTES ABSOLUTE 0.49 10/3/uL (0.21-1.20); NEUTROPHILS 81.5 %; NEUTROPHILS ABSOLUTE 5.22 10/3/uL (2.02-8.40); PLATELET COUNT 205 10/3/uL (150-400); RBC DISTRIBUTION WIDTH 16.1 % (12.0-16.0); RED CELL COUNT 2.44 10/6/uL (4.7-6.1); WHITE BLOOD CELLS 6.4 10/3/uL (4.5-10.5)
[2017-03-05 04:39] LABS: CALCIUM, SERUM 7.9 MG/DL (8.5-10.4); CHLORIDE, SERUM 105 MMOL/L (96-112); CO2 (CARBON DIOXIDE) 23 MMOL/L (24-34); CREATININE 3.88 MG/DL (0.70-1.30); GFR AFRICAN AMERICAN 16 ML/MIN (>=60); GFR NON AFRICAN AMERICAN 14 ML/MIN (>=60); GLUCOSE, SERUM 100 MG/DL (60-99); MANUAL DIFF NO %; POTASSIUM, SERUM 4.2 MMOL/L (3.5-5.3); SODIUM, SERUM 143 MMOL/L (135-148)
[2017-03-05 04:40] LABS: BUN (BLOOD UREA NITROGEN) 69 MG/DL (6-23)
[2017-03-05 16:31] LABS: HEMOGLOBIN 6.9 g/dL (13.6-17.8)
[2017-03-06 04:50] LABS: HEMATOCRIT 24.6 % (40.0-51.0); HEMOGLOBIN 7.8 g/dL (13.6-17.8); MANUAL DIFF YES %; MEAN CORPUS HGB CONC 31.7 g/dL (32.0-36.0); MEAN CORPUSCULAR HEMOGLOB 29.5 pg (26.0-34.0); MEAN CORPUSCULAR VOLUME 93.2 fL (80-100); PLATELET COUNT 187 10/3/uL (150-400); RBC DISTRIBUTION WIDTH 16.1 % (12.0-16.0); RED CELL COUNT 2.64 10/6/uL (4.7-6.1); WHITE BLOOD CELLS 6.3 10/3/uL (4.5-10.5)
[2017-03-06 04:52] LABS: CALCIUM, SERUM 7.9 MG/DL (8.5-10.4); CHLORIDE, SERUM 108 MMOL/L (96-112); CO2 (CARBON DIOXIDE) 21 MMOL/L (24-34); GFR AFRICAN AMERICAN 13 ML/MIN (>=60); GFR NON AFRICAN AMERICAN 11 ML/MIN (>=60); GLUCOSE, SERUM 105 MG/DL (60-99); POTASSIUM, SERUM 4.3 MMOL/L (3.5-5.3); SODIUM, SERUM 145 MMOL/L (135-148)
[2017-03-06 04:54] LABS: BUN (BLOOD UREA NITROGEN) 77 MG/DL (6-23); CREATININE 4.46 MG/DL (0.70-1.30)
[2017-03-06 06:28] LABS: BASOPHILS 1 %; BASOPHILS ABSOLUTE (CALC) 0.06 10/3/uL (0.0-0.16); EOSINOPHILS 2 %; EOSINOPHILS ABSOLUTE (CALC) 0.13 10/3/uL (0.0-0.53); LYMPHOCYTES 7 %; LYMPHOCYTES ABSOLUTE (CALC) 0.44 10/3/uL (0.67-4.30); MONOCYTES 5 %; MONOCYTES ABSOLUTE (CALC) 0.32 10/3/uL (0.21-1.20); NEUTROPHILS ABSOLUTE (CALC) 5.36 10/3/uL (2.02-8.40); SEGMENTED NEUTROPHIL (0) 85 %; TOTAL NUCLEATED CELLS 100
[2017-03-06 06:29] LABS: PLATELET ESTIMATE ADQ (ADEQUATE); RBC MORPHOLOGY NORM (NORMAL)
[2017-03-06 17:16] LABS: HEMATOCRIT 25.3 % (40.0-51.0); HEMOGLOBIN 8.1 g/dL (13.6-17.8)
[2017-03-07 05:25] LABS: HEMATOCRIT 24.2 % (40.0-51.0); HEMOGLOBIN 7.7 g/dL (13.6-17.8)
== END 2017-03-07 20:44 | disposition hospice, home (50) | DRG 291 ==
LOC: 6NO 11:14 → MIC 03-01 18:55
PROVIDERS: Internal Medicine; Internal Medicine Critical Care Medicine; Internal Medicine Gastroenterology; Internal Medicine Nephrology; Internal Medicine Pulmonary Disease; Specialist
PROC: 0F9430Z Drainage of Gallbladder with Drainage Device, Percutaneous Approach (ICD-10-PCS; 2017-02-26 09:30)
PROC: 0DB68ZX Excision of Stomach, Via Natural or Artificial Opening Endoscopic, Diagnostic (ICD-10-PCS; 2017-02-26 09:30)
PROC: 0W3P8ZZ Control Bleeding in Gastrointestinal Tract, Via Natural or Artificial Opening Endoscopic (ICD-10-PCS; 2017-02-26 09:30)
PROC: 30233N1 Transfusion of Nonautologous Red Blood Cells into Peripheral Vein, Percutaneous Approach (ICD-10-PCS; principal; 2017-03-01)
DX: I13.0 Hypertensive heart and chronic kidney disease with heart failure and stage 1 through stage 4 chronic kidney disease, or unspecified chronic kidney disease (principal); A41.9 Sepsis, unspecified organism; J96.01 Acute respiratory failure with hypoxia; J90 Pleural effusion, not elsewhere classified; N17.9 Acute kidney failure, unspecified; K55.21 Angiodysplasia of colon with hemorrhage; N18.3 Chronic kidney disease, stage 3 (moderate); I50.43 Acute on chronic combined systolic (congestive) and diastolic (congestive) heart failure; D62 Acute posthemorrhagic anemia; K81.0 Acute cholecystitis; J44.1 Chronic obstructive pulmonary disease with (acute) exacerbation; E87.2 Acidosis; I48.0 Paroxysmal atrial fibrillation; E08.22 Diabetes mellitus due to underlying condition with diabetic chronic kidney disease; Z66 Do not resuscitate; Z51.5 Encounter for palliative care; Z99.81 Dependence on supplemental oxygen; I73.9 Peripheral vascular disease, unspecified; Z90.49 Acquired absence of other specified parts of digestive tract; Z88.8 Allergy status to other drugs, medicaments and biological substances; J44.9 Chronic obstructive pulmonary disease, unspecified; I25.10 Atherosclerotic heart disease of native coronary artery without angina pectoris; N40.0 Benign prostatic hyperplasia without lower urinary tract symptoms; E87.70 Fluid overload, unspecified
CPT/HCPCS: 36415; 36569; 36600; 71010; 74000; 74176; 74181; 75984; 76705; 76775; 80048; 80053; 80069; 80076; 81001; 82248; 82570; 82607; 82728; 82805; 82962; 82977; 83540; 83550; 83605; 83735; 83880; 84100; 84132; 84134; 84145; 84300; 84443; 84484; 85014; 85018; 85025; 86140; 86850; 86900; 86901; 86920; 87040; 87070; 87075; 87077; 87086; 87186; 87205; 87641; 88305; 93005; 94640; 94660; A9270-GY; C1729; C1751; C1769; C8924; C8929; C9113; J0282; J0878; J1170; J1205; J1980; J2370; J2405; J2543; J3010; J3411; P9016; P9047; Q9957